=== PATIENT | male | born 1955 | race Caucasian/White ===

== ENCOUNTER 2017-01-20 12:52 | Emergency (ER) | payer MEDICARE, OTHER | END 2017-01-20 14:17 | disposition home or self-care (01) | LOC: ER1 12:52 | DX: S30.861A Insect bite (nonvenomous) of abdominal wall, initial encounter (principal); F32.9 Major depressive disorder, single episode, unspecified; F17.200 Nicotine dependence, unspecified, uncomplicated; W57.XXXA Bitten or stung by nonvenomous insect and other nonvenomous arthropods, initial encounter | CPT/HCPCS: 99281 ==

== ENCOUNTER 2017-02-19 08:44 | Emergency (ER) | payer MEDICARE, OTHER ==
[2017-02-19 10:47] LABS: HEMOGLOBIN 14.6 gm/dl (14.0-17.5); RED BLOOD COUNT 4.46 M/UL (4.20-5.50); WHITE BLOOD COUNT 4.3 K/UL (4.5-11.0)
[2017-02-19 11:17] LABS: BUN/CREATININE RATIO 17 (0-10)
== END 2017-02-19 13:35 | disposition home or self-care (01) ==
LOC: ER1 08:44
PROVIDERS: Emergency Medicine
DX: K40.90 Unilateral inguinal hernia, without obstruction or gangrene, not specified as recurrent (principal); F17.200 Nicotine dependence, unspecified, uncomplicated
CPT/HCPCS: 36415; 80053; 81001; 83690; 85025; 99284